=== PATIENT | male | born 1985 | race Caucasian/White ===

== ENCOUNTER 2024-01-04 | Outpatient (CLI) | payer OTHER | END 2024-01-04 16:01 | disposition home or self-care (01) | DX: G47.10 Hypersomnia, unspecified (principal); R53.83 Other fatigue; G47.9 Sleep disorder, unspecified; R06.83 Snoring; G47.00 Insomnia, unspecified ==

== ENCOUNTER → 2024-09-25 | Day surgery (SDC) | payer OTHER ==
[~2024-09-25] MED LIST: Gadobenate Dimeglumine 2 ML, Sodium Chloride 0.9% 250 ML 10 ML, Iopamidol 8 ML, Lidocai... FS SCH; Magnevist 469MG/ML 20 ML VIAL ONE; Sodium Bicarbonate 2.5 MEQ/5 ML SDV ONE
== END ==
LOC: RAD 08:34
PROVIDERS: ATTEND Student in an Organized Health Care Education/Training Program
PROC: BP39YZZ Magnetic Resonance Imaging (MRI) of Left Shoulder using Other Contrast (ICD-10-PCS; principal; 2024-09-25)
DX: M24.812 Other specific joint derangements of left shoulder, not elsewhere classified (principal)
CPT/HCPCS: 23350; 77002; A9577; J0171; J7050; Q9967